=== PATIENT | male | born 1985 ===

== ENCOUNTER 2017-02-26 04:43 | Emergency (ER) | payer SELFPAY ==
[2017-02-26 05:03] VITALS: TEMP 98.1
--- NOTE | 2017-02-26 05:34 | C.PDOC ---
History Of Present Illness patient found inebriated in the street. patient upset that the police brought him to the ed. Denies suicidal or homicidal ideation . States he has been drinking and wants to go home. No obvious signs of trauma Time Seen by Provider: 02/26/17 05:33 Chief Complaint (Nursing): Substance Abuse History Per: Patient History/Exam Limitations: intoxication Onset/Duration Of Symptoms: Hrs Current Symptoms Are (Timing): Still Present Suicide/Self Injury Attempted (Context): None Modifying Factor(s): Alcohol Severity: Moderate Pain Scale Rating Of: 4 Associated Symptoms: denies: Anger, Depression Involuntary Hold By: None Recent travel outside of the [place]: No Additional History Per: EMS, Law Enforcement Past Medical History Reviewed: Historical Data, Nursing Documentation, Vital Signs Vital Signs: Last Vital Signs Temp 98.1 F 02/26/17 04:51 Pulse 117 H 02/26/17 04:51 Resp 16 02/26/17 04:51 BP 145/82 02/26/17 04:51 Pulse Ox 97 02/26/17 05:34 Family History: States: No Known Family Hx - Social History Hx Alcohol Use: Yes Hx Substance Use: No - Immunization History Hx Tetanus Toxoid Vaccination: No Hx Influenza Vaccination: No Hx Pneumococcal Vaccination: No Review Of Systems Constitutional: Negative for: Fever Cardiovascular: Negative for: Chest Pain Respiratory: Negative for: Shortness of Breath Gastrointestinal: Negative for: Nausea, Vomiting Genitourinary: Negative for: Dysuria Musculoskeletal: Negative for: Back Pain Skin: Negative for: Rash Neurological: Negative for: Weakness Psych: Negative for: Depression Physical Exam - Physical Exam Appears: Non-toxic Skin: Warm, Dry Head: Atraumatic, Normacephalic Eye(s): bilateral: Normal Inspection Oral Mucosa: Moist Neck: Supple Chest: Symmetrical Cardiovascular: Rhythm Regular Respiratory: No Rales, No Rhonchi, No Wheezing Gastrointestinal/Abdominal: Soft, No Tenderness, No Distention Back: No CVA Tenderness Extremity: Normal ROM Extremity: Bilateral: Atraumatic Neurological/Psych: Oriented x3 Gait: Unsteady ED Course And Treatment O2 Sat by Pulse Oximetry: 97 ED OBSERVATION Date of observation admission: 02/26/17 Time of observation admission: 05:36 - Observation admission statement Patient is being placed in observation because:: acute alcohol intoxication - Goals of Observation Goals of observation are:: sobriety - Progress Note Progress Note: 02/26/17 05:36 vitals stable Disposition Counseled Patient/Family Regarding: Studies Performed, Diagnosis - Disposition Disposition Time: 05:34 Condition: FAIR Forms: [facility] (Estonian) - Clinical Impression Clinical Impression: Alcohol intoxication Physician Patient Turnover Patient Signed Over To: Jhoana Hurst Handoff Comments: pending sobriety and disposition Decision To Admit - . Patient Diagnosis: Alcohol intoxication
[2017-02-26 10:03] VITALS: BP 121/74; PULSE 88; RESP 17; O2SAT 100
== END 2017-02-26 10:26 | disposition home or self-care (01) ==
LOC: EDSEX 04:43 → C.ER 04:43
DX: F10.129 Alcohol abuse with intoxication, unspecified (principal); Y90.9 Presence of alcohol in blood, level not specified